=== PATIENT | female | born 1965 | race Two or more races ===

== ENCOUNTER 2017-12-06 06:25 | Day surgery (SDC) | payer OTHER ==
[~2017-12-06 06:25] MED LIST: CATAFLAM50 MG PO; NORFLEX100MG PO
== END 2017-12-06 13:55 | disposition home or self-care (01) ==
LOC: CIR.AMB 06:25
DX: C50.912 Malignant neoplasm of unspecified site of left female breast (principal)

== ENCOUNTER → 2017-12-17 | Emergency (ER) | payer OTHER | END | disposition left against medical advice (07) | LOC: ER 12:46 | DX: Z53.20 Procedure and treatment not carried out because of patient's decision for unspecified reasons (principal) ==